=== PATIENT | male | born 1945 | race African-American/Black ===

== ENCOUNTER 2018-12-14 07:04 | Day surgery (SDC) | payer MEDICARE, MEDICAID ==
[2018-12-13 10:49] LABS: HEMATOCRIT 38.8 % (42.0-54.0); HEMOGLOBIN 12.9 g/dL (13.5-17.5); MCH 31.5 pg (26.0-34.0); MCHC 33.2 g/dL (31.0-37.0); MCV 94.9 fL (80.0-100.0); RBC 4.09 10x6/uL (4.20-6.10); RDW 14.3 % (11.5-14.5); WBC 6.4 10x3/uL (4.8-10.8)
[2018-12-13 10:58] LABS: ANION GAP 16.3 mmol/L (8-16); CALCIUM 8.6 mg/dL (8.5-10.1); CARBON DIOXIDE 25.7 mmol/L (21.0-32.0)
[~2018-12-14] VITALS: Ht 165.1 cm; Wt 73.5 kg
[~2018-12-14 07:04] MED LIST: FLUTICASONE PRO16 GM NASAL; LISINOPRIL40 MG PO; MECLIZINE HCL25 MG; MOBIC7.5 MG PO; NORVASC10 MG PO; ZANAFLEX4 MG
[2018-12-14] MEDS ORDERED: NEURONTIN 300300 MG PO (07:43)
[2018-12-14] MEDS ORDERED: HYDROCHLOROTH12.5 M1 PO (07:45)
[2018-12-14 07:51] VITALS: BP 102/69; Ht 165.1 cm; Wt 73.5 kg
[2018-12-14] MEDS ORDERED: HYDROCODON-ACE1 EA10 PO (12:57)
--- NOTE | 2018-12-14 15:05 | NUR ---
DISCHARGE INSTRUCTIONS REVIEWED WITH PATIENT AND FAMILY. DISCHARGED HOME VIA WHEELCHAIR TO PRIVATE VEHICLE WITH FAMILY
--- NOTE | 2018-12-18 07:51 | OP ---
PATIENT NAME: ENEIDA LESTER MEDICAL RECORD: [id number] :49 LOCATION:[facility] ADMISSION DATE: SURGEON: MÓNICA COOK MD DATE OF OPERATION: 12/14/2018 PREOPERATIVE DIAGNOSES: 1. Impingement syndrome of the right shoulder. 2. Rotator cuff tear of the right shoulder. POSTOPERATIVE DIAGNOSES: 1. Impingement syndrome of the right shoulder. 2. Rotator cuff tear of the right shoulder. PROCEDURES: 1. Arthroscopic rotator cuff repair of the right shoulder. 2. Arthroscopic distal clavicle excision done through separate incision -- 1 cm. 3. Arthroscopic subacromial decompression, acromioplasty and bursectomy. SURGEON: Mónica Cook MD ANESTHESIA: General. INTRAOPERATIVE COMPLICATIONS: None. SUMMARY OF PATHOLOGIC FINDINGS: The patient was indeed found to have a full thickness rotator cuff tear of the supraspinatus tendon consistent with preoperative MRI and diagnosis along with a downward sloping acromion and excoriation of the coracoacromial ligament and grade IV chondromalacia of the acromioclavicular joint. OPERATIVE SUMMARY IN DETAIL: After obtaining the appropriate preoperative orthopedic surgery consent as well as anesthetic consultation, evaluation, and clearance, the patient was brought to the operating room and placed on the operating table in supine position. After general laryngeal mask airway was administered, the patient was placed in a left lateral decubitus position. All pressure points were well padded to include down leg peroneal pad as well as axillary roll. The patient was held firmly to the operating table using VAC suction system. Right upper extremity was then prepped and draped in routine sterile fashion. The arm was held in the [employer] traction boom at 30 degrees of forward flexion, 30 degrees of abduction with 10 pounds of traction laterally. Arthroscopy was established in the glenohumeral joint from the posterior portal. Anterior portal was established in the anterior safe interval. The rotator cuff tear was immediately notified. Gentle labral debridement was then followed by a preparation of the greater tuberosity to reapproximate the rotator cuff. The arthroscopic resector was utilized to decorticate and take down portions of the torn rotator cuff. Attention then turned to the subacromial space. While in the subacromial space, the Andreas tissue ablation system from [employer] was utilized to denude the undersurface of the acromion of all soft tissue elements and release the coracoacromial ligament and denude the AC joint. A 5-0 barrel bur was then used to perform acromioplasty at the level of acromioclavicular joint and through a separate incision under direct arthroscopic visualization, 1 cm of the distal clavicle was removed. Attention was then returned to the rotator cuff. Single inverted mattress suture was placed with #2 FiberTape. This was then anchored laterally with a single 5.5 SwiveLock. Having completed OPERATIVE REPORT [id number] ENEIDA LESTER this, arthroscopy portals were closed in routine interrupted fashion using 4-0 Prolene. Sterile dressings were applied. The patient was awakened and taken to recovery room in stable condition. All final needle and sponge counts were correct. TRANSINT:[id number] Voice Confirmation ID: [id number] DOCUMENT ID: [id number] JOYCE GOULD, MÓNICA CRUZ at 0751 CC: [id number] DICTATION DATE: 12/15/18 1154 COVER STRIPPER: 12/15/18 1435 [facility] 12/14/18 [facility] [address] [place] [address]
== END 2018-12-14 15:05 | disposition home or self-care (01) ==
LOC: D.OPS 07:04 → D.PAN 08:45 → D.OPS 10:00
PROVIDERS: Anesthesiology; ATTEND Orthopaedic Surgery
DX: M75.41 Impingement syndrome of right shoulder (principal); M75.101 Unspecified rotator cuff tear or rupture of right shoulder, not specified as traumatic; Z01.812 Encounter for preprocedural laboratory examination

== ENCOUNTER → 2020-01-04 09:03 | Outpatient (CLI) | payer MEDICARE, MEDICAID ==
[2018-12-14 07:51] VITALS: BMI 27.0
[~2020-01-04 09:03] MED LIST changes: +HYDROCHLOROTH12.5 M1 PO; +HYDROCODON-ACE1 EA10 PO; +NEURONTIN 300300 MG PO
== END | disposition home or self-care (01) ==
LOC: D.MRI 09:03
PROVIDERS: ATTEND Orthopaedic Surgery
DX: S83.231A Complex tear of medial meniscus, current injury, right knee, initial encounter (principal)